=== PATIENT | female | born 1945 | race Caucasian/White ===

== ENCOUNTER → 2018-08-21 | Outpatient (CLI) | payer OTHER | END | disposition home or self-care (01) | LOC: TOM 10:00 | DX: R31.0 Gross hematuria (principal) | CPT/HCPCS: 74177; Q9965 ==

== ENCOUNTER 2019-07-29 09:15 | Outpatient (CLI) | payer OTHER | END 2019-07-29 09:16 | disposition home or self-care (01) | LOC: RX STUDY 09:15 | DX: N82.3 Fistula of vagina to large intestine (principal) ==